=== PATIENT | female | born 1960 | race Caucasian/White ===

== ENCOUNTER → 2017-03-07 | Outpatient (CLI) | payer OTHER ==
[~2017-03-07] MED LIST: AMLO2.5T PO; AMX500 PO; DRV65 PO; GABA1CAP PO; HYDR12.55 PO; LEVO50TA6 PO; SULF800T23 PO
[2017-03-07 10:13] LABS: HEMATOCRIT 38.5 % (37-47); MEAN CELL VOLUME 85.6 fL (80-100); MEAN CORPUSCULAR HEMOGLOBIN 28.9 pg (25-34); MEAN CORPUSCULAR HGB CONC 33.8 g/dl (32-36); MEAN PLATELET VOLUME 10.3 fL (7.4-10.4); PLATELET COUNT 332 K/uL (130-400); WHITE BLOOD COUNT 4.49 K/uL (4.8-10.8)
[2017-03-07 10:29] LABS: URINE APPEARANCE CLEAR (CLEAR); URINE BILIRUBIN NEG (NEG); URINE COLOR YELLOW; URINE EPITHELIAL CELL AUTO >30 /lpf (0-5); URINE NITRITE NEG (NEG); URINE PH 5.5 (4.5-7.5); UROBILINOGEN NEG (NEG)
[2017-03-07 10:30] LABS: MANUAL MICROSCOPIC REQUIRED? NO; REVIEW REQ? NO
[2017-03-07 12:36] LABS: ALT/SGPT 11 U/L (12-78); BLOOD UREA NITROGEN 7 mg/dl (7-18); CALCIUM 9.2 mg/dl (8.5-10.1); CARBON DIOXIDE 27 mmol/L (21-32); CHLORIDE 105 mmol/L (98-107); CHOLESTEROL 218 mg/dl (0-200); CREATININE 0.72 mg/dl (0.60-1.20); GLUCOSE 89 mg/dl (70-99); SODIUM 140 mmol/L (136-145)
[2017-03-07 12:46] LABS: ALKALINE PHOSPHATASE 52 U/L (45-117); AST/SGOT 19 U/L (15-37); CHOLESTEROL/HDL RATIO 3.5; HDL CHOLESTEROL 62 mg/dl; LDL CHOLESTEROL CALCULATED 130 mg/dl; TRIGLYCERIDES 132 mg/dl (0-150); VERY LOW DENSITY LIPOPROT CALC 26 mg/dl
[2017-03-07 13:37] LABS: LYME DISEASE AB IGG NEG (NEG)
[2017-03-07 13:41] LABS: LYME DISEASE AB IGM NEG (NEG)
== END | disposition home or self-care (01) ==
LOC: C.LAB1850 09:22
PROVIDERS: ATTEND Internal Medicine
DX: Z00.00 Encounter for general adult medical examination without abnormal findings (principal); E05.90 Thyrotoxicosis, unspecified without thyrotoxic crisis or storm; R10.11 Right upper quadrant pain; K30 Functional dyspepsia; R53.83 Other fatigue

== ENCOUNTER → 2017-03-14 | Outpatient (CLI) | payer OTHER ==
--- NOTE | 2017-03-14 10:13 | DIAGNOSTIC IMAGING REPORT ---
BILIARY ULTRASOUND CLINICAL HISTORY: Chronic right upper quadrant abdominal pain COMPARISON STUDY: No previous studies for comparison. FINDINGS: The pancreas appears sonographically normal. There is no right-sided hydronephrosis. The common bile duct measures 6 mm. The gallbladder is surgically absent. There is a 2 cm hyperechoic focus within the left lobe of the liver. While nonspecific, this may represent focal fat. IMPRESSION: 1. Surgically absent gallbladder 2. No ductal dilatation 3. Ultrasonographically normal pancreas 4. Nonspecific 2 cm hyperechoic focus within the left lobe of the liver, possibly representing focal fat Electronically signed by: Manuel Castillo M.D. 03/14/2017 10:12 AM Dictated Date/Time: 03/14/2017 10:10 AM
== END | disposition home or self-care (01) ==
LOC: C.ULTR 09:28
PROVIDERS: ATTEND Internal Medicine
DX: R10.11 Right upper quadrant pain (principal)

== ENCOUNTER → 2017-03-19 | Outpatient (CLI) | payer OTHER | END | disposition home or self-care (01) | LOC: C.LAB1850 17:00 | PROVIDERS: ATTEND Internal Medicine | DX: Z00.00 Encounter for general adult medical examination without abnormal findings (principal); E05.90 Thyrotoxicosis, unspecified without thyrotoxic crisis or storm; R10.11 Right upper quadrant pain; K30 Functional dyspepsia; R53.83 Other fatigue ==

== ENCOUNTER → 2017-04-11 | Outpatient (CLI) | payer OTHER ==
[2017-04-11 14:53] LABS: URINE APPEARANCE CLEAR (CLEAR); URINE BILIRUBIN NEG (NEG); URINE COLOR YELLOW; URINE NITRITE NEG (NEG); URINE SPECIFIC GRAVITY 1.022 (1.000-1.030); UROBILINOGEN NEG (NEG)
[2017-04-11 14:58] LABS: MANUAL MICROSCOPIC REQUIRED? NO; REVIEW REQ? NO
== END | disposition home or self-care (01) ==
LOC: C.LABSPEC 13:56
PROVIDERS: ATTEND Physician Assistant
DX: R10.31 Right lower quadrant pain (principal)

== ENCOUNTER → 2017-04-11 | Outpatient (CLI) | payer OTHER | END | disposition home or self-care (01) | LOC: C.PAPS 14:31 | PROVIDERS: ATTEND Physician Assistant | DX: Z12.4 Encounter for screening for malignant neoplasm of cervix (principal) ==

== ENCOUNTER 2017-05-01 09:26 | Emergency (ER) | payer OTHER ==
[~2017-05-01] VITALS: Ht 160 cm; Wt 88.0 kg
[2017-05-01 09:31] VITALS: TEMP 36.7; Ht 160 cm; Wt 88.0 kg
[2017-05-01 10:18] LABS: HEMATOCRIT 37.6 % (37-47); MEAN CORPUSCULAR HEMOGLOBIN 29.5 pg (25-34); MEAN CORPUSCULAR HGB CONC 34.3 g/dl (32-36); MEAN PLATELET VOLUME 9.7 fL (7.4-10.4); PLATELET COUNT 335 K/uL (130-400); RED BLOOD COUNT 4.37 M/uL (4.2-5.4); WHITE BLOOD COUNT 4.18 K/uL (4.8-10.8)
[2017-05-01 10:37] LABS: BLOOD UREA NITROGEN 7 mg/dl (7-18); CALCIUM 9.1 mg/dl (8.5-10.1); CARBON DIOXIDE 27 mmol/L (21-32); CHLORIDE 107 mmol/L (98-107); CREATININE 0.71 mg/dl (0.60-1.20); GLUCOSE 99 mg/dl (70-99); POTASSIUM 3.5 mmol/L (3.5-5.1); SODIUM 141 mmol/L (136-145)
--- NOTE | 2017-05-01 11:19 | DIAGNOSTIC IMAGING REPORT ---
CHEST 2 VIEWS ROUTINE CLINICAL HISTORY: 57 years-old Female presenting with CHEST PAIN. TECHNIQUE: PA and lateral views of the chest were obtained. COMPARISON: 03/01/2017. FINDINGS: Cardiomediastinal silhouette normal. Lungs and pleural spaces clear. Osseous structures normal. Cholecystectomy clips noted. IMPRESSION: 1. No acute cardiopulmonary disease. Electronically signed by: Navarro Kirby M.D. 05/01/2017 11:18 AM Dictated Date/Time: 05/01/2017 11:18 AM
--- NOTE | 2017-05-01 11:47 | EMERGENCY ROOM VISIT NOTE ---
History Report prepared by Shanon: Rain Zimmerman Under the Supervision of: Dr. James Spann M.D. First contact with patient: 09:43 Chief Complaint: CHEST PAIN Stated Complaint: CHEST PAIN Nursing Triage Summary: pt arrived from [facility] reported c/o pain in the left chest and down arm pressure on chest stabbing on left side burning sensation across chest pt hx of neg stress doputamine echo in oct 2015 [id number] pt took noravast 2.5 levo 15mcg History of Present Illness The patient is a 57 year old female who presents to the Emergency Room with complaints of persistent chest pain starting this morning. The history is given through her friend who is translating. The patient was being prepared for an endoscopy when she complained of chest pain. She was sent to the ED. She currently rates her discomfort as an 8/10 in severity. She describes the pain as a stabbing in the left chest and a burning across her chest. She notes that this pain is a common occurrence for her especially after she overexerts herself or is under increased stress. She is also having pain in her back under her left shoulder blade. She also complains of SOB and nausea. She was fatigued today and was considering not having the endoscopy due to her fatigue. She denies any diaphoresis. She has a history of digestive problems which was the reason for her endoscopy. She cannot say if her pain is related to acid reflux because she is unsure what acid reflux is. She notes that she just moved into a new home yesterday causing increased stress and exertion. Source of History: patient, friend Onset: this morning Position: chest (left) Symptom Intensity: 8/10 Quality: burning, stabbing Timing: other (persistent) Associated Symptoms: + SOB, + nausea, + fatigue, No diaphoresis Review of Systems All systems have been listed, reviewed, and are negative other than those previously mentioned. Please see Additional Medical History Sheet. Past Medical & Surgical Medical Problems: (1) Hypothyroidism Family History No pertinent family history stated. Social History Smoking Status: Never Smoker Marital Status: Occupation Status: unemployed Current/Historical Medications Scheduled Amlodipine (Norvasc), 2.5 MG PO QAM Levothyroxine Sodium (Levothyroxine Sodium), 50 MCG PO QAM Allergies Coded Allergies: No Known Allergies (Verified , 05/01/17) Physical Exam Vital Signs Date Time Temp Pulse Resp B/P (MAP) Pulse Ox O2 Delivery O2 Flow Rate FiO2 05/01/17 12:57 64 20 134/93 98 05/01/17 10:53 62 18 152/101 99 Room Air 05/01/17 09:37 65 05/01/17 09:36 97 Room Air 05/01/17 09:31 36.7 63 22 213/113 97 Room Air Physical Exam GENERAL: Patient awake, alert, oriented x 3. Patient follows commands. Patient does not appear toxic. Patient is adequately hydrated and well- nourished. SKIN: No erythema, pallor, cyanosis or rash HEENT: Normal head, pupils equal, reactive to light and accommodation. Oral cavity and posterior pharynx appear normal. Neck: Without adenopathy, no neck vein distention. CHEST: Reproducible chest wall pain anteriorly and also over the rhomboid area in the back. LUNGS: Clear to auscultation. No wheezes, no rales, no rhonchi. HEART: No murmurs. No gallops. No rubs ABDOMEN: Obese. No masses, no rebound, no hepatomegaly or splenomegaly. EXTREMITIES: No signs of trauma. No pedal or pretibial edema. No calf or thigh tenderness. NEUROLOGIC: Cranial nerves II-XII within normal limits. No gross motor sensory function deficits. Medical Decision & Procedures ER Provider Diagnostic Interpretation: X ray results are stated below per my interpretation and the radiologist's interpretation. CHEST 2 VIEWS ROUTINE CLINICAL HISTORY: 57 years-old Female presenting with CHEST PAIN. TECHNIQUE: PA and lateral views of the chest were obtained. COMPARISON: 03/01/2017. FINDINGS: Cardiomediastinal silhouette normal. Lungs and pleural spaces clear. Osseous structures normal. Cholecystectomy clips noted. IMPRESSION: 1. No acute cardiopulmonary disease. Electronically signed by: Navarro Kirby M.D. 05/01/2017 11:18 AM Dictated Date/Time: 05/01/2017 11:18 AM Laboratory Results 05/01/17 10:05 05/01/17 10:05 Test 05/01/17 10:05 Red Blood Count 4.37 M/uL (4.2-5.4) Mean Corpuscular Volume 86.0 fL (80-100) Mean Corpuscular Hemoglobin 29.5 pg (25-34) Mean Corpuscular Hemoglobin Concent 34.3 g/dl (32-36) RDW Standard Deviation 39.7 fL (36.4-46.3) RDW Coefficient of Variation 12.5 % (11.5-14.5) Mean Platelet Volume 9.7 fL (7.4-10.4) Anion Gap 7.0 mmol/L (3-11) Est Creatinine Clear Calc Drug Dose 94.2 ml/min Estimated GFR () 111.1 Estimated GFR (Non- 95.9 BUN/Creatinine Ratio 10.0 (10-20) Calcium Level 9.1 mg/dl (8.5-10.1) Troponin I < 0.015 ng/ml (0-0.045) Laboratory results as stated above per my review. ECG Indication: chest pain Rate (beats per minute): 64 Rhythm: sinus rhythm Findings: no acute ischemic change, no ectopy ED Course 0943: Past medical records reviewed. The patient was evaluated in room C12B. A complete history and physical examination was performed. 1218: Upon reevaluation, the patient appeared to have improvement of her symptoms. I discussed today's findings with her through her friend. She verbalized agreement of the treatment plan. She was discharged home. Medical Decision I considered multiple diagnoses including myocardial infarction, chest wall pain , pericarditis, myocarditis, aortic emergencies, pulmonary embolism, congestive heart failure, GI causes, and other significant cardiopulmonary disorders. Multiple labs, EKG and imaging were obtained. Please see above. The patient has no evidence of an acute cardiopulmonary event. She does have reproducible pain on palpation over the left anterior chest and in the in the rhomboid area on the left. The patient will be treated conservatively with ibuprofen and heat. The patient can follow-up with GI at a later date. Medication Reconcilliation Current Medication List: was personally reviewed by me Blood Pressure Screening Patient's blood pressure: Elevated blood pressure Blood pressure disposition: Referred to PCP Impression Primary Impression: Chest wall pain Scribe Attestation The scribe's documentation has been prepared under my direction and personally reviewed by me in its entirety. I confirm that the note above accurately reflects all work, treatment, procedures, and medical decision making performed by me. Departure Information Dispostion Home / Self-Care Referrals Capri Michael M.D. (PCP) [facility] Instructions [facility] Additional Instructions 600 mg ibuprofen every 6 hours as needed for pain. Apply heat intermittently to your back and chest. Follow-up with your family physician within the next 2 weeks regarding this pain and your elevated blood pressure.
[2017-05-01 12:57] VITALS: BP 134/93; PULSE 64; O2SAT 98
== END 2017-05-01 12:58 | disposition home or self-care (01) ==
LOC: EDBD 09:26 → C.EDC 09:29
DX: R07.9 Chest pain, unspecified (principal); R06.02 Shortness of breath; R11.0 Nausea; R53.83 Other fatigue; E03.9 Hypothyroidism, unspecified; R07.89 Other chest pain

== ENCOUNTER → 2017-05-01 | Day surgery (SDC) | payer OTHER ==
[2017-04-24 15:04] VITALS: Ht 160 cm; Wt 89.1 kg
[~2017-05-01] VITALS: Ht 160 cm; Wt 89.1 kg
[~2017-05-01] MED LIST changes: -AMX500 PO; -DRV65 PO; +SODIUM CHLORIDE 0.9% 500ML 500 ML IV ONE; -SULF800T23 PO
== END | disposition home or self-care (01) ==
LOC: C.GI 07:49
PROVIDERS: ATTEND Internal Medicine
DX: R10.11 Right upper quadrant pain (principal); Z53.8 Procedure and treatment not carried out for other reasons; R07.9 Chest pain, unspecified

== ENCOUNTER → 2017-05-01 | Outpatient (CLI) | payer OTHER ==
[~2017-05-01] MED LIST changes: -SODIUM CHLORIDE 0.9% 500ML 500 ML IV ONE
--- NOTE | 2017-05-01 08:24 | DIAGNOSTIC IMAGING REPORT ---
FUSION CT SINUSES W/O CLINICAL HISTORY: 57 years-old Female presenting with neurologic pain disorder, chronic left mastoid and maxillary sinus pain and pressure. TECHNIQUE: Multidetector CT of the sinuses was performed without the use of intravenous contrast. IV contrast: None. A dose lowering technique was used consistent with the principles of ALARA (as low as reasonably achievable). COMPARISON: None. CT DOSE (mGy.cm): The estimated cumulative dose is 598.71 inclusive of the temporal bone CT. FINDINGS: Rig Hand topogram: Unremarkable. Minimal opacification and mucosal thickening of anterior ethmoid air cells with mucosal thickening in the right frontal sinus. Mucosal thickening also noted in the sphenoid sinuses, left greater than right and minimally in the maxillary sinuses. No significant fluid in the mastoid air cells. No sclerosis of the maxillary sinus baker to suggest chronic sinusitis. No erosive bony changes. Soft tissues of the face normal-appearing. Orbits normal. Limited intracranial evaluation within normal limits. Upper cervical spine normal. Multiple partially calcified subcutaneous nodules noted in the skin near the vertex and along the occiput, possibly partially calcified sebaceous cysts or cystic acne disease. IMPRESSION: Mucosal thickening of the paranasal sinuses without convincing evidence of acute sinusitis. No fluid in the mastoid air cells to suggest mastoiditis. No bony changes to suggest chronic sinusitis. Electronically signed by: Navarro Kirby M.D. 05/01/2017 8:22 AM Dictated Date/Time: 05/01/2017 8:18 AM
--- NOTE | 2017-05-01 08:47 | DIAGNOSTIC IMAGING REPORT ---
TEMPORAL ORB/SELLA/TEMP W/O HISTORY: 57 years-old Female R29.818 Neurological pain [id number] FEMALE STATUS POST COMPARISON: CT sinus study of same day TECHNIQUE: Multiple axial CT images of the temporal bones were obtained without IV contrast. [employer]tr[employer] images were also obtained. A dose lowering technique was used consistent with the principals of LEXIE. FINDINGS: RIGHT TEMPORAL BONE: The ossicles are intact. The mastoid air cells are clear. The course of the 7th cranial nerve appears normal. Semicircular canals and cochlea are within normal limits. There is no evidence of jugular bulb dehiscence. The scutum is sharp in contour. Cochlear promontory is within normal limits. Petrous portion of the carotid is within normal limits. LEFT TEMPORAL BONE: The ossicles are intact. The mastoid air cells are clear. The course of the 7th cranial nerve appears normal. Semicircular canals and cochlea are within normal limits. There is no evidence of jugular bulb dehiscence. The scutum is sharp in contour. Cochlear promontory is within normal limits. Petrous portion of the carotid is within normal limits. ADDITIONAL INCIDENTAL FINDINGS: There is moderate ethmoid and mild maxillary sinus disease with polypoid mucosal thickening of the anterior right maxillary sinus. Mild sphenoid and right frontal sinus disease also noted. The sella is partially empty. Imaged intracranial structures are unremarkable. Mild degenerative changes involve the bilateral temporomandibular joints. IMPRESSION: 1. Unremarkable sonographic appearance of the bilateral temporal bones with no evidence of otomastoiditis. 2. Mild paranasal sinus disease as above. The above report was generated using voice recognition software. It may contain grammatical, syntax or spelling errors. Electronically signed by: Morris Dunn M.D. 05/01/2017 8:46 AM Dictated Date/Time: 05/01/2017 8:18 AM
== END | disposition home or self-care (01) ==
LOC: C.CTS 07:45
DX: R10.11 Right upper quadrant pain (principal); R29.818 Other symptoms and signs involving the nervous system

== ENCOUNTER → 2017-05-16 | Outpatient (CLI) | payer OTHER ==
[~2017-05-16] MED LIST changes: -GABA1CAP PO; -HYDR12.55 PO
[2017-05-16 15:13] LABS: MAGNESIUM 2.3 mg/dl (1.8-2.4); THYROID STIMULATING HORMONE 2.65 uIu/ml (0.300-4.500)
== END | disposition home or self-care (01) ==
LOC: C.LAB1850 13:41
PROVIDERS: ATTEND Internal Medicine Endocrinology, Diabetes & Metabolism
DX: E03.9 Hypothyroidism, unspecified (principal); M79.1 Myalgia; R53.83 Other fatigue; R29.818 Other symptoms and signs involving the nervous system; I10 Essential (primary) hypertension

== ENCOUNTER → 2017-07-04 | Outpatient (CLI) | payer OTHER ==
[2017-07-04 13:59] LABS: C-REACTIVE PROTEIN < 0.29 mg/dl (0-0.29)
[2017-07-04 14:27] LABS: LYME DISEASE AB IGG NEG (NEG); LYME DISEASE AB IGM NEG (NEG)
[2017-07-06 00:52] LABS: RAPID PLASMA REAGIN NONREACTIVE (NONREACT)
[2017-07-09 14:26] LABS: ALBUMIN 4.3 G/DL (3.8-4.8); GAMMA GLOBULIN 1.1 G/DL (0.8-1.7); TOTAL PROTEIN 7.3 G/DL (6.2-8.3); VITAMIN B6** TC 926 57.7 ng/mL (2.1-21.7)
== END | disposition home or self-care (01) ==
LOC: C.LAB1850 11:13
PROVIDERS: ATTEND Psychiatry & Neurology Neurology
DX: E55.9 Vitamin D deficiency, unspecified (principal); R53.83 Other fatigue; R20.8 Other disturbances of skin sensation

== ENCOUNTER → 2017-07-25 | Outpatient (CLI) | payer OTHER ==
[~2017-07-25] MED LIST changes: +GADAVIST IV PRN
--- NOTE | 2017-07-25 10:23 | DIAGNOSTIC IMAGING REPORT ---
MRI OF THE BRAIN WITHOUT AND WITH IV CONTRAST CLINICAL HISTORY: Headaches and burning sensation within the head and occipital region. The left here pain. COMPARISON STUDY: Temporal bone CT scan dated 05/01/2017 TECHNIQUE: MRI of the brain was performed from the vertex to the skull base utilizing various T1 and T2 weighted sequences. Following the IV administration of 8.5 mL of Gadavist contrast, additional enhanced images were obtained. FINDINGS: Sagittal T1, axial diffusion, proton density and T2 weighted axial, coronal FLAIR, and pre and post axial T1-weighted images were acquired. These were supplemented with post gadolinium coronal , and sagittal T1 weighted images. No intra or extra-axial mass lesions are visualized. Axial diffusion-weighted images reveal no evidence of acute or subacute infarction. There is no evidence of ventricular dilatation. Proton density T2-weighted and FLAIR images reveal scattered foci of increased T2 signal within the white matter, likely on a small vessel basis. There are no abnormal flow voids. There is no evidence of pathologic enhancement. No trigeminal nerve lesions are visualized. Meckel's cave appears normal. There are multiple bilateral scalp lesions, likely representing sebaceous cysts. Clinical correlation is advocated. IMPRESSION: 1. No evidence of intracranial mass 2. No evidence of acute or subacute infarction 3. Foci of increased T2 signal within the white matter likely a small vessel basis 4. Multiple bilateral scalp lesions likely representing sebaceous cysts. Clinical correlation is advocated. Electronically signed by: Manuel Castillo M.D. 07/25/2017 10:22 AM Dictated Date/Time: 07/25/2017 10:15 AM
== END | disposition home or self-care (01) ==
LOC: C.MRIBC 08:58
PROVIDERS: ATTEND Psychiatry & Neurology Neurology
DX: G50.0 Trigeminal neuralgia (principal); R20.8 Other disturbances of skin sensation

== ENCOUNTER → 2017-11-05 | Outpatient (CLI) | payer OTHER ==
[~2017-11-05] MED LIST changes: -GADAVIST IV PRN
== END | disposition home or self-care (01) ==
LOC: C.LAB1850 13:08
PROVIDERS: ATTEND Internal Medicine Endocrinology, Diabetes & Metabolism
DX: E55.9 Vitamin D deficiency, unspecified (principal); E03.9 Hypothyroidism, unspecified